=== PATIENT | male | born 1935 | race Caucasian/White ===

== ENCOUNTER 2018-09-24 12:49 | Emergency (ER) | payer MEDICARE, OTHER ==
[2007-05-24 09:27] VITALS: BP 123/72
[~2018-09-24] VITALS: Ht 170.2 cm; Wt 76.8 kg
[~2018-09-24 12:49] MED LIST: ASPIRIN 81M81 MG/TA2 PO; COUMADIN 2MG2 MG/TAB PO; COUMADIN PO; COUMADIN4 MG PO; COUMADIN5 MG PO; DIABETA 5MG5 MG/TAB PO; FLOMAX 0.40.4 MG/CAP PO; GLUCOPHAGE1000 MG PO; GLYBURIDE5 MG PO; INDOCIN50 MG PO; LOVENOX100 MG/ML SQ; LUMIGAN 2.5 ML2.5 M1 OP; NORCO 325 MG-51 TAB PO; OMNICEF 300MG300 MG PO; ORAPRED ODT10 MG PO; PRINIVIL10 MG PO; PYRIDIUM 100MG100 MG PO; ST. JOSEPH81 M2 PO; TOPROL XL 25MG25 MG PO; XARELTO15 MG PO; ZOCOR 40MG40 MG PO; ZOCOR40 MG PO; ZOFRAN 4MG T4 MG/TAB PO
[2018-09-24 12:56] VITALS: TEMP 98.2
[2018-09-24 14:21] LABS: ALBUMIN 3.8 gm/dL (3.5-5.0); BILIRUBIN,TOTAL 0.6 mg/dL (0.0-1.0); CALCIUM 9.1 mg/dL (8.4-10.2); CREATININE, serum 1.4 mg/dL (0.66-1.25); TOTAL PROTEIN 6.8 gm/dL (6.4-8.2)
[2018-09-24] MEDS ORDERED: DIABETA 5MG5 MG/TAB PO (14:28)
[2018-09-24 14:32] LABS: C-REACTIVE PROTEIN 15.9 mg/dL (0.0-0.9)
[2018-09-24 15:02] LABS: COLLECTION METHOD CLEAN CATCH
[2018-09-24 15:09] LABS: MUCOUS Present /lpf; PH 5 (5-8); SQUAMOUS EPITHELIAL None Seen /hpf; URINE APPEARANCE Clear; URINE BACTERIA None Seen /hpf; URINE BILIRUBIN Negative (NEGATIVE); URINE BLOOD Negative (NEGATIVE); URINE COLOR Yellow; URINE GLUCOSE Negative (NEGATIVE); URINE KETONE Trace (NEGATIVE); URINE LEUKOCYTE ESTERASE Negative (NEGATIVE); URINE NITRATE Negative (NEGATIVE); URINE PROTEIN(semi-quant) Negative (NEGATIVE); URINE RBC 0-2 /hpf; URINE UROBILINOGEN Negative (NEGATIVE)
[2018-09-24 16:27] LABS: BASO # 0.1 (0.0-0.2); BASO % 0.5 % (0.0-2.0); EOS # 0.2 (0.0-0.7); EOS % 1.7 % (0-4.0); GRAN # 10.1 (1.4-6.5); GRAN % 83.7 % (42.2-75.2); HEMATOCRIT 41.6 % (42.0-52.0); HEMOGLOBIN 13.6 g/dl (13.5-18.0); LYMPH # 0.8 (1.2-3.4); LYMPH % 6.6 % (20.0-51.0); MEAN CELL VOLUME 94 fl (80.0-100.0); MEAN CORPUSCULAR HEMOGLOBIN 31 pg (27.0-31.0); MEAN CORPUSCULAR HGB CONC 33 g/dl (33.0-37.0); MEAN PLATELET VOLUME 9.8 fl (7.4-10.4); MONO # 0.8 (0.1-0.6); MONO % 6.8 % (1.7-9.3); PLATELET COUNT 253 K/mm3 (130-400); RED BLOOD COUNT 4.44 M/mm3 (4.20-5.60); REDCELL DISTRIBUTION WIDTH-CV 13.4 % (11.5-14.5)
[2018-09-24 18:11] VITALS: BP 123/78; PULSE 80
== END 2018-09-24 18:13 | disposition home or self-care (01) ==
LOC: COL.ER 12:49
PROVIDERS: Emergency Medicine; Family Medicine
DX: R19.7 Diarrhea, unspecified (principal); E87.6 Hypokalemia; E11.9 Type 2 diabetes mellitus without complications; I10 Essential (primary) hypertension; E78.5 Hyperlipidemia, unspecified; E86.9 Volume depletion, unspecified; Z79.01 Long term (current) use of anticoagulants; Z79.82 Long term (current) use of aspirin; Z79.84 Long term (current) use of oral hypoglycemic drugs
CPT/HCPCS: J2405; J7030

== ENCOUNTER 2021-03-30 10:52 | Emergency (ER) | payer MEDICARE, OTHER ==
[2007-05-24 09:27] VITALS: BP 123/72
[~2021-03-30] VITALS: Ht 170.2 cm; Wt 65.9 kg
[2021-03-30] MEDS ORDERED: ELIQUIS 5MG PO (11:22)
[2021-03-30 11:49] LABS: BASO # 0.1 (0.0-0.2); BASO % 0.4 % (0.0-2.0); EOS # 0.3 (0.0-0.7); EOS % 2.2 % (0-4.0); GRAN % 84.3 % (42.2-75.2); HEMATOCRIT 39.2 % (42.0-52.0); HEMOGLOBIN 12.5 g/dl (13.5-18.0); LYMPH # 0.8 (1.2-3.4); LYMPH % 6.6 % (20.0-51.0); MEAN CELL VOLUME 94 fl (80.0-100.0); MEAN CORPUSCULAR HEMOGLOBIN 30 pg (27.0-31.0); MEAN CORPUSCULAR HGB CONC 32 g/dl (33.0-37.0); MONO # 0.7 (0.1-0.6); MONO % 6.2 % (1.7-9.3); PLATELET COUNT 164 K/mm3 (130-400); RED BLOOD COUNT 4.19 M/mm3 (4.20-5.60); REDCELL DISTRIBUTION WIDTH-CV 13.8 % (11.5-14.5)
[2021-03-30 12:18] LABS: ALANINE AMINOTRANSFERASE 38 U/L (4-49); ALBUMIN 4.1 gm/dL (3.5-5.0); ALKALINE PHOSPHATASE 79 U/L (50-136); ANION GAP 11 mmol/L (7-16); AST,SGOT 49 U/L (15-37); BILIRUBIN,TOTAL 1.2 mg/dL (0.0-1.0); BLOOD UREA NITROGEN 22 mg/dL (9-20); CALCIUM 9.3 mg/dL (8.4-10.2); CARBON DIOXIDE 17 mmol/L (22-30); CHLORIDE 111 mmol/L (98-107); CREATININE, serum 1.41 (0.66-1.25); GLUCOSE 124 mg/dL (74-106); POTASSIUM 5.2 mmol/L (3.4-5.0); SODIUM 139 mmol/L (137-145); TOTAL PROTEIN 7.3 gm/dL (6.4-8.2)
[2021-03-30 12:31] LABS: TROPONIN-I < 0.012 ng/mL (0.000-0.035)
[2021-03-30 15:14] VITALS: BP 107/66; PULSE 82; TEMP 97.6
== END 2021-03-30 15:16 | disposition home or self-care (01) ==
LOC: COL.ER 10:52
PROVIDERS: Nurse Practitioner Primary Care
DX: I48.91 Unspecified atrial fibrillation (principal); I50.9 Heart failure, unspecified; E11.9 Type 2 diabetes mellitus without complications; Z79.01 Long term (current) use of anticoagulants; Z79.84 Long term (current) use of oral hypoglycemic drugs
CPT/HCPCS: J1940

== ENCOUNTER → 2022-01-30 | Outpatient (CLI) | payer MEDICARE, OTHER ==
[~2022-01-30] MED LIST changes: +ELIQUIS 5MG PO
== END ==
LOC: COL.RAD 06:51
DX: K57.30 Diverticulosis of large intestine without perforation or abscess without bleeding (principal); N32.9 Bladder disorder, unspecified; R19.4 Change in bowel habit
CPT/HCPCS: Q9967